=== PATIENT | male | born 1980 | race Caucasian/White ===

== ENCOUNTER 2017-11-19 07:33 | Emergency (ER) | payer OTHER ==
[~2017-11-19] VITALS: Ht 175.3 cm; Wt 84.8 kg
[~2017-11-19 07:33] MED LIST: Z.0.CIPRO500 MG PO; Z.0.DULERA 100 MCG/1 IH; Z.0.IBUPROFEN600 MG PO; Z.0.WARFARIN SODIUM3 PO
[2017-11-19] MEDS ORDERED: SODIUM CHLORIDE 0.9% 1000ML 1,000 ML IV STA (08:14)
[2017-11-19 08:33] LABS: BASOPHILS # (AUTO) 0.1 (0.0-0.1); BASOPHILS % 0.4 % (0.0-1.0); EOSINOPHILS # (AUTO) 0.2 (0.0-0.4); EOSINOPHILS % 1.7 % (0.0-6.0); LYMPHOCYTES # (AUTO) 2.9 (1.0-3.2); LYMPHOCYTES % 24.8 % (18.0-39.1); MEAN CORPUSCULAR HGB CONC 35.6 g/dL (31-35); MEAN CORPUSCULAR VOLUME 84.4 fL (81-99); MONOCYTES # (AUTO) 0.7 (0.2-0.8); MONOCYTES % 5.7 % (4.4-11.3); NEUTROPHILS # (AUTO) 7.7 (2.1-6.9); PLATELET COUNT 219 x10e3/uL (140-360); RED BLOOD COUNT 5.33 x10e6/uL (4.3-5.7); RED CELL DISTRIBUTION WIDTH 12.6 % (11.7-14.4)
[2017-11-19 08:50] LABS: ALANINE AMINOTRANSFERASE 24 IU/L (0-55); ALBUMIN 3.8 g/dL (3.5-5.0); ALBUMIN/GLOBULIN RATIO 1.3 (0.8-2.0); ALKALINE PHOSPHATASE 71 IU/L (40-150); ANION GAP 12.1 mmol/L (8-16); BLOOD UREA NITROGEN 14 mg/dL (7-26); BUN/CREATININE RATIO 15 (6-25); CALCIUM 9.2 mg/dL (8.4-10.2); CARBON DIOXIDE 28 mmol/L (22-29); CHLORIDE 104 mmol/L (98-107); CREATININE, SERUM 0.91 mg/dL (0.72-1.25); EST GLOMERULAR FILTRATION RATE > 60 ML/MIN (60-); GLUCOSE 124 mg/dL (74-118); POTASSIUM 4.1 mmol/L (3.5-5.1); SODIUM 140 mmol/L (136-145)
[2017-11-19 10:55] VITALS: BP 149/90
== END 2017-11-19 11:06 | disposition home or self-care (01) ==
LOC: ER 07:33
DX: M79.651 Pain in right thigh (principal)
CPT/HCPCS: 36415; 80053; 85025; 85379; 93971; 99284; J7030

== ENCOUNTER 2018-06-14 07:17 | Emergency (ER) | payer OTHER ==
[~2018-06-14] VITALS: Ht 172.7 cm; Wt 91.6 kg
--- NOTE | 2018-06-14 08:10 | NUR ---
DR. FOURNIER IN TRIAGE WITH PT TO EVAL.
--- NOTE | 2018-06-14 08:25 | NUR ---
CALLED YOLANDA TERRY RN TO INFORM VASCULAR DOPPLER TECH NEEDED TO BE CALLED OUT FOR STUDY.
[2018-06-14] MEDS ORDERED: HYDROCODONE/APAP 10MG-325MG TAB PO ONE (09:00)
[2018-06-14] MEDS ORDERED: ONDANSETRON HCL 4 MG ORAL DISINTEGRATING TAB PO ONE (09:00)
--- NOTE | 2018-06-14 09:31 | NUR ---
VENOUS DOPPLER TECH WITH PT PERFORMING STUDY. PENDING RESULTS AT THIS TIME AND PT AWARE OF THIS.
--- NOTE | 2018-06-14 09:50 | NUR ---
VENOUS DOPPLER COMPLETE. DR FOURNIER AWARE. PENDING FURTHER ORDERS AT THIS TIME.
[2018-06-14] MEDS ORDERED: HYDROMORPHONE 2MG/ML 2 MG/ML ML IM ONE (11:00)
== END 2018-06-14 10:20 | disposition home or self-care (01) ==
LOC: ER 07:17
DX: M54.41 Lumbago with sciatica, right side (principal); Z86.718 Personal history of other venous thrombosis and embolism
CPT/HCPCS: 93971; 99283; J1170; Q0162

== ENCOUNTER 2025-03-18 08:39 | Emergency (ER) | payer OTHER ==
[~2025-03-18] VITALS: Ht 172.7 cm; Wt 104.3 kg
[2025-03-18 08:51] VITALS: TEMP 98.2
[2025-03-18 10:00] LABS: BASOPHILS % 0.2 % (0.0-1.0); EOSINOPHILS % 0.1 % (0.0-6.0); LYMPHOCYTES % 9.7 % (18.0-39.1); MONOCYTES % 5.5 % (4.4-11.3); NEUTROPHILS % 83.9 % (38.7-80.0); RED CELL DISTRIBUTION WIDTH 12.1 % (11.7-14.4)
[2025-03-18] MEDS: DIPHENHYDRAMINE HCL INJ 50 MG/ML VIAL IV ONE (10:14)
[2025-03-18] MEDS: PROMETHAZINE 12.5MG/ NACL 0.9% 12.5 MG/50 ML BAG IV ONE (10:14)
[2025-03-18] MEDS: SODIUM CHLORIDE 0.9% 1000ML 1,000 ML IV STA ×2 (10:14)
[2025-03-18] MEDS: ONDANSETRON HCL INJ 2MG/ML 2ML 2 MG/ML VIAL IV STA (10:14)
[2025-03-18 10:18] LABS: EST GLOMERULAR FILTRATION RATE 88.0 ML/MIN (>=60)
[2025-03-18 10:20] VITALS: PULSE 76; RESP 20
[2025-03-18] MEDS ORDERED: ONDANSETRON ODT4 MG PO (11:50)
[2025-03-18] MEDS ORDERED: PHENERGAN SUPP25 MG PR (11:50)
[2025-03-18 12:06] VITALS: BP 154/88; O2SAT 100
== END 2025-03-18 12:00 | disposition home or self-care (01) ==
LOC: ER 08:50
DX: R11.2 Nausea with vomiting, unspecified (principal); K52.9 Noninfective gastroenteritis and colitis, unspecified; I10 Essential (primary) hypertension; E11.65 Type 2 diabetes mellitus with hyperglycemia; K21.9 Gastro-esophageal reflux disease without esophagitis; Z86.711 Personal history of pulmonary embolism; Z86.718 Personal history of other venous thrombosis and embolism
CPT/HCPCS: 36415; 80053; 83735; 85025; 99283; J1200; J2405; J2470; J2550; J7030